=== PATIENT | male | born 1985 | race American Indian/Alaskan Native ===

== ENCOUNTER 2018-10-12 03:15 | Emergency (ER) | payer SELFPAY ==
[~2018-10-12] VITALS: Ht 185.4 cm; Wt 80.0 kg
[2018-10-12] MEDS ORDERED: LIDOcaine 1% w/epiNEPHrine 1:200,000 30ml vial IM ONE (03:25)
[2018-10-12 03:44] VITALS: BP 143/84
== END 2018-10-12 03:48 ==
LOC: ER 03:19
DX: S01.01XA Laceration without foreign body of scalp, initial encounter (principal); S91.211A Laceration without foreign body of right great toe with damage to nail, initial encounter; Z56.0 Unemployment, unspecified; W22.8XXA Striking against or struck by other objects, initial encounter; Y93.89 Activity, other specified; Y92.89 Other specified places as the place of occurrence of the external cause; Y99.8 Other external cause status
CPT/HCPCS: 12001; 99283; J3490